=== PATIENT | male | born 1990 | race African-American/Black ===

== ENCOUNTER 2017-07-21 14:48 | Emergency (ER) ==
[~2017-07-21] VITALS: Ht 177.8 cm; Wt 102.0 kg
[2017-07-21 14:48] VITALS: BP 147/87
== END 2017-07-21 17:55 | disposition left against medical advice (07) ==
LOC: M ED 14:48
DX: R21 Rash and other nonspecific skin eruption (principal); Z53.29 Procedure and treatment not carried out because of patient's decision for other reasons

== ENCOUNTER 2017-07-22 14:09 | Emergency (ER) ==
[~2017-07-22] VITALS: Ht 177.8 cm; Wt 104.5 kg
[2017-07-22 14:09] VITALS: BP 157/78
== END 2017-07-22 16:38 | disposition left against medical advice (07) ==
LOC: M ED 14:09
DX: R22.0 Localized swelling, mass and lump, head (principal); Z53.29 Procedure and treatment not carried out because of patient's decision for other reasons

== ENCOUNTER → 2017-11-16 | Outpatient (CLI) | payer OTHER | LOC: M LRY 12:57 | DX: R07.89 Other chest pain (principal) | CPT/HCPCS: 71046 ==

== ENCOUNTER → 2018-05-15 | Outpatient (REF) | payer OTHER ==
[2018-05-15 15:37] LABS: SEMEN APPEARANCE OPAQUE (OPAQUE); SEMEN VISCOSITY VISCOUS (LIQUID); SEMEN VOLUME 1.2 ml (4.0-5.0); SEMEN pH 7.5 (7.0-8.0); SPERM ABNORMAL FORMS WBC'S NOTED; WBC CONCENTRATION >1 M/ml (<=1 M/ml)
[2018-05-15 15:38] LABS: SPERM CONCENTRATION 7.4 M/ml (>=15.0)
[2018-05-15 15:39] LABS: % NORMAL FORMS 4 % (>=4); IMMOTILITY 53 %; NON PROGRESSIVE MOTILITY (c) 29 %; PROGRESSIVE MOTILITY (a) 18 % (>=32); SPERM# 8.9 M/Ejac (>=39); TOTAL FUNCTIONAL 0.2 M/Ejac.; TOTAL MOTILITY 47 % (>=40); TOTAL PROGRESSIVE SPERM 1.6 M/Ejac.
== END ==
LOC: M LAB REF 15:14
DX: N46.8 Other male infertility (principal)

== ENCOUNTER → 2018-08-18 | Outpatient (CLI) | payer OTHER ==
[~2018-08-18] MED LIST: PROHANCE 279.3MG/ML 15ML VIAL (A9576) As Ordered; PROHANCE 279.3MG/ML 5ML VIAL (A9576) As Ordered
== END ==
LOC: M RAD 17:11
DX: R51 Headache (principal)
CPT/HCPCS: A9576

== ENCOUNTER 2019-01-17 11:44 | Emergency (ER) | payer OTHER ==
[~2019-01-17] VITALS: Ht 175.3 cm; Wt 135.0 kg
[2019-01-17] MEDS ORDERED: KETOROLAC 30 MG/ML VIAL (J1885) IV ONE (12:15)
[2019-01-17 12:22] LABS: HEMATOCRIT 45.9 % (42.0-52.0); HEMOGLOBIN 15.5 g/dl (13.5-17.5); MEAN CORPUSCULAR HEMOGLOBIN 28.2 pg (27.0-33.0); MEAN CORPUSCULAR HGB CONC 33.8 g/dl (32.0-36.5); MEAN CORPUSCULAR VOLUME 83.5 fl (80.0-96.0); PLATELET COUNT, AUTOMATED 193 10^3/uL (150-450); WHITE BLOOD COUNT 6.7 10^3/uL (4.0-10.0)
[2019-01-17 12:39] LABS: BLOOD UREA NITROGEN 14 MG/DL (7-18); CALCIUM LEVEL 8.7 MG/DL (8.5-10.1); CARBON DIOXIDE LEVEL 25 MEQ/L (21-32); CHLORIDE LEVEL 104 MEQ/L (98-107); CPK CREATINE PHOSPHOKINASE 811 U/L (39-308); GLOMERULAR FILTRATION RATE > 60.0 (>60); GLUCOSE, FASTING 93 MG/DL (70-100); MB/CK RELATIVE INDEX 0.33 (< OR =4); POTASSIUM SERUM 3.6 MEQ/L (3.5-5.1); SODIUM LEVEL 137 MEQ/L (136-145); TROPONIN I < 0.02 NG/ML (< 0.10)
--- NOTE | 2019-01-17 12:52 | REP ---
Chest two views HISTORY: Chest pain Comparison: 11/16/2017 The lungs are clear. The heart is normal in size. The pulmonary vasculature is normal in appearance. The bony structure is intact. IMPRESSION: No acute disease. Electronically Signed by Gerardo Garcia MD 01/17/2019 12:43 P
[2019-01-17 14:45] LABS: ERYTHROCYTE SEDIMENTATION RATE 11 mm/hr (0-15)
[2019-01-17 15:17] VITALS: BP 117/61
--- NOTE | 2019-01-18 10:14 | ECGEPIP ---
Stationary ECG Study [facility] - ED Test Date: 2019-01-17 Pat Name: PHILIPP BOOKER Department: Room: - Gender: M Rehab Spec: [place] : 1990 Requested By: Nupur Gibson Order Number: [id number] Reading MD: Nupur Gibson Measurements Intervals [place] Rate: 93 P: 28 CO: 158 QRS: 6 QRSD: 104 T: 5 QT: 378 QTc: 470 Interpretive Statements SINUS RHYTHM NSTTW ABNORMALITY NO PRIOR FOR COMPARISON Electronically Signed On 01-18-2019 10:14:01 EDT by Nupur Gibson
== END 2019-01-17 15:18 | disposition home or self-care (01) ==
LOC: EDBD 11:44 → M ED 11:44
DX: R07.89 Other chest pain (principal); F43.10 Post-traumatic stress disorder, unspecified; F17.210 Nicotine dependence, cigarettes, uncomplicated
CPT/HCPCS: 71046; 80048; 82550; 82553; 84484; 85027; 85379; 85652; 93005; 96374; 99284; J1885